=== PATIENT | female | born 1970 | race Caucasian/White ===

== ENCOUNTER 2024-11-06 23:32 | Emergency (ER) | payer OTHER, SELFPAY ==
--- OUTSIDE RECORDS SUMMARY | 2024-11-06 23:34 | XMS_ITS | Clinical Summary ---
Author Organization [facility] Address [place], [place] [address] Care Team Providers Care Patient Financial Services Specialist Name Role Phone Chauncey Brewster MD Primary Care Provider [phone] Miki Marquez MD Unavailable [phone] Allergies Active Allergy Reactions Criticality Noted Date Comments Penicillins Rash 03/21/2007 Medications biotin 1,000 mcg chew Chew 1 Tablet by mouth once daily. 0 6 Active calcium carbonate-vitamin D3 600mg (1,000mg) -1,000 unit cap Take 1 Tablet by mouth once daily. 0 7 Active ergocalciferol (VITAMIN D2; DRISDOL) 50,000 unit capsuleIndications: Vitamin D deficiency Take 1 Capsule (50,000 units) by mouth once weekly. 13 Capsule 3 4 Active levothyroxine (SYNTHROID) 137 mcg tabletIndications:P ostsurgical hypothyroidism Take 1 Tablet (137 mcg) by mouth before breakfast. 90 Tablet 3 4 Active Active Problems Problem Noted Date Diagnosed Date Postablative hypothyroidism 11/18/2015 Overview (03/11/2023): The following is from Dr. Marquez in 03/2022: Thyroid condition is well controlled. Recurrence risk is very low. I think it is reasonable to keep her TSH very mildly suppressed. The preferable range would be 0.3-1.5. I would not adjust her dose of levothyroxine unless her TSH was 0.1 or below. 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 3 foci of follicular-variant, and 1 foci of classic PTC. + surgical margins, + extrathyroidal extension 1/3 LN + on right 108 mCi 07/25/11, thyrogen-protocol Recurrence 2014; left neck dissection 04/25/15 with 2/5 level II; 0/8 level III; 1/8 level IV. 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 Immunizations Name Administration Dates Next Due Hepatitis B (Adult) 10/30/2013,07/03/2013 Influenza A (H1N1), Inactivated 01/26/2010 Influenza, IIV3 (Age 6-35 mos) 07/26/2010 Influenza, IIV3 (Age >=3 years) 10/30/2013 Influenza, IIV4 09/20/2023,12/04/2021,08/29/2018 ,09/30/2015 Tdap 05/09/2011 Family History Medical History Relation Name Comments Cancer-breast No Family History Social History Tobacco Use Types Packs/Day Years Used Date Smoking Tobacco: Never Passive Smoke Exposure: Never Smokeless Tobacco: Never Tobacco Cessation:Counseling Given: Not Answered Alcohol Use Standard Drinks/Week Comments No 0 (1 standard drink = 0.6 oz pur e alcohol) PHQ-2 Answer Date Recorded PHQ-2 Score 3 12/22/2018 Social Connections Answer Date Recorded Do you often feel lonely or isolated from those around you? 4 09/20/2023 Financial Resource Strain Answer Date R ecorded Difficulty of Paying Living Expenses 1 09/20/2023 Difficulty of Paying Living Expenses 2 09/20/2023 Food Insecurity Answer Date Recorded Do you worry your food will run out before you are able to buy more? 1 09/20/2023 Transportation Needs Answer Date Record ed Does lack of transportation keep you from medica l appointments? 1 09/20/2023 Does lack of transportation keep you from work, meetings or getting things that you need? 1 09/20/2023 Housing Stability Answer Date Recorded What is your housing situation today? 1 09/20/2023 Comments No Sex and Gender Information Value Date Recorded Sex Assigned at Not on file Legal Sex Female 7:22 AM [employer] Gender Identity Not on file Sexual Orientation Not on file Obstetrics History Last Filed Vital Signs Vital Sign Reading Time Taken Comments Blood Pressure 150/86 01/03/2024 1:11 PM CDT Pulse 84 01/03/2024 1:11 PM CDT Temperature 37 C (98.6 F) 09/20/2023 1:40 PM [facility] Respiratory Rate 16 12/05/2018 11:4 6 AM [facility] Oxygen Saturation 95% 09/20/2023 1:40 PM [facility] Inhaled Oxygen Concentration - - Weight 100.7 kg (222 lb 1.6 oz) 01/03/2024 1:11 PM CDT Height 165.7 cm (5' 5.25) 07/24/2019 1 1:02 AM CDT Body Mass Index 36.68 07/24/2019 11:02 AM CDT Plan of Treatment Health Maintenance Due Date Last Done Comments HIV for age 15-65 1987 Hepatitis C screening for age 18-79 1990 Depression screening for age 12+ 06/04/2019 06/04/2018, 05/14/2018, 03/16/2016 BMI (ht and wt on same day) for age 18+ 07/24/2020 07/24/2019, 07/13/2019, 06/04/2018, Additional history exists Tetanus booster 05/09/2021 05/09/2011 Pap test for age 21-65 06/04/2021 8, 07/22/2015, 10/10/2010 Pneumococcal series for age 50+ (1 of 1 - PCV) 2022 Zoster (shingles) series for age 50+ (1 of 2) 2022 COVID-19 vaccine series (1 - season) 2024 Influenza for age 50-64 06/21/2024 09/20/20 23, 12/04/2021, 08/29/2018, Additional history exists Mammogram for age 45-75 12/09/2024 12/09/19 24, 12/08/2021, 08/28/2018, Additional history exists Lipids for age 45-75 03/26/2027 03/26/2022, 11/24/2018, 08/22/2018, Additional history exists Colonoscopy through age 75 02/17/203202/16, 02/16/2022, 02/16/2022 Tdap Completed 05/09/2011 Pneumococcal series for age 6-49 Aged Out No longer eligible based on patient's age to complete this topic Procedures Procedure Name Priority Date/Time Associated Diagnosis Comments XR MAMMO REINIER BILAT SCREEN Routine 12/09/2023 4:30 PM [facility] Breast cancer screening by mammogram LIPID PANEL W REFLEX MEASURED LDL Add On 03/26/2022 4:17 PM CDT Dyslipidemia COLONOSCOPY SCREENING Routine 02/16/2022 10:45 AM CDT Screening for colon cancer SPECIAL MACHINE STITCHER THIN PREP PAP SCREEN IMAGED Routine 06/04/2018 12:00 PM CDT Pap smear for cervical cancer screening from Last 3 Months or Most Recently Relevant to Health Maintenance Results * XR MAMMO REINIER BILAT SCREEN [[id number]] (12/09/2023 4:30 PM [facility]) Anatomical Region Laterality Modality BREASTS, Breast Left, Breast Right Bilateral Mammography Impressions 12/11/2023 7:07 AM [facility] There is no radiographic evidence for malignancy. Recommend annual mammograms. MAMMOGRAM ASSESSMENT: ACR 1 Negative PATIENTS: You will also receive a letter with your examination results in an easy to read format. If you have questions about your results, please contact your referring provider. Narrative 12/11/2023 7:07 AM [facility] For Patients: As a result of the Century Cures Act, medical imaging exams and procedure reports are released immediately into your electronic medical record. You may view this report before your referring provider. If you have questions, please contact your health care provider. XR MAMMO REINIER BILAT SCREEN [[id number]] CLINICAL HISTORY: This is an asymptomatic 53 y.o. patient. INDICATION FOR EXAM: Mammogram Screening. TECHNIQUE: CC & MLO views were obtained. This study was evaluated with the assistance of Computer-Aided Detection. Breast Tomosynthesis was used in interpretation. COMPARISON FILM: Yes 12/08/21 [facility] 08/22/18 [facility] FINDINGS: The breasts are heterogeneously dense, which may obscure small masses. There are no dominant masses, suspicious micro calcifications or areas of architectural distortion. Chauncey Brewster MD MAMMO Final Resu lt * (ABNORMAL) LIPID PANEL W REFLEX MEASURED LDL (03/26/2022 4:17 PM CDT) CHOLESTEROL,TOTAL 206(H) 100 - 199 mg/dL 03/30/2022 4:22 PM CDT [facility] TRIGLYCERIDES 253(H) <150 mg/dL 03/30/2022 4:22 PM CDT [facility] HDL CHOLESTEROL 39(L) >40 mg/dL 4:22 PM CDT [facility] NON-HDL CHOLESTEROL 167(H) <145 mg/dl 03/30/2022 4:22 PM CDT [facility] CHOL/HDL RATIO 5.28(H) <4.50 03/30/2022 4:22 PM CDT [facility] LDL CHOLESTEROL 116 <=130 mg/dL 03/30/2022 4:22 PM CDT [facility] VLDL CHOLESTEROL 51(H) <=30 mg/dL 03/30/2022 4:22 PM CDT [facility] PROVIDER ORDERED STATUS RANDOM 03/30/2022 4:22 PM CDT [facility] Blood BLOOD SPECIMEN / Unknown Venipuncture / Unknown 03/26/2022 4:17 PM CDT 03/26/2022 4:17 PM CDT Miki Marquez MD CHEMISTRY Final Re sult [facility] [address] [place] [address], [place] * COLONOSCOPY (02/16/2022 11:03 AM CDT) 02/16/2022 11:0 3 AM CDT Narrative Transcriptions Lior Galeana MD - 02/16/2022 11:43 AM CDT Patient Name: Delfina Miles Procedure Date: 02/16/2022 Gender: Female Date of : 1970 Admit Type: Outpatient Procedure: Colonoscopy Proceduralist: Lior Galeana MD , Paulina Saavedra (Nurse) Referring MD: Chauncey Brewster Indications/Pre-Op Diagnosis: Screening for colorectal malignant neoplasm, This is the patient's first colonoscopy Medications: Fentanyl 100 micrograms IV, Midazolam 4 mgIV, The level of sedation administered wasmoderate Procedure Description: The patient had risks, benefits and alternatives explained to andgave informed consent. The patient had a stable cardiopulmonary status and judged an adequate candidate for conscious sedation. The colonoscope was passed through the anus and advanced to thececum, identified by appendiceal orifice and ileocecal valve. Thecolonoscopy was performed without difficulty. The patient tolerated the procedure well. The quality of the bowel preparation was good. The ileocecal valve, appendiceal orifice, and rectum were photographed. Complications: No immediate complications. Estimated Blood Loss & Specimen: Estimated blood loss: none. Specimen collected - None Findings: The perianal and digital rectal examinations were normal. The entire examined colon appeared normal on direct and retroflexion views. Impressions/Post-Op Diagnosis: - The entire examined colon is normal on direct and retroflexionviews. - No specimens collected. Recommendation: - Patient has a contact number available for emergencies. The signsand symptoms of potential delayed complications were discussed with the patient. Return to normal activities tomorrow. Written discharge instructions were provided to the patient. - Resume previous diet. - Continue present medications. - Repeat colonoscopy in 10 years for screening purposes. Moderate Sedation: Moderate (conscious) sedation was administered by the endoscopy nurse and supervised by the endoscopist. The following parameters were monitored: oxygen saturation, heart rate, respiratory rate, blood pressure, adequacy of pulmonary ventilation and reponse to care. Please refer to the patient's medical record flowsheets and nursing notes for moderate sedation details. Total physician intraservice time was 15 minutes. Lior Galeana MD 02/16/2022 11:43:28 AM This report has been signed electronically. Note Initiated On: 02/16/2022 11:03 AM Procedure Code(s): --- Professional --- 96649, Colonoscopy, flexible; diagnostic, including collection of specimen(s) bybrushing or washing, when performed (separateprocedure) Diagnosis Code(s): --- Professional --- Z12.11, Encounter for screening formalignant neoplasm of colon CPT copyright 2020 [employer]. All rights reserved. The codes documented in this report are preliminary and upon service unit operator reviewmay be revised to meet current compliance requirements. Scope In: 11:17:13 AM Scope Withdrawal Time 0 hours 6 minutes 49 seconds Scope Out: 11:30:44 AM us Lior Galeana MD PROCEDURE ORD Final Res ult * SPECIAL MACHINE STITCHER THIN PREP PAP SCREEN IMAGED (06/04/2018 12:00 PM CDT) Case Report Gynecologic Cytology Report Case: [id number] Authorizing Provider: Chauncey Brewster MD Collected: 06/04/2018 1200 Ordering Location: [facility] Received: 06/04/2018 1220 Clinic First Screen: Mark Borrero Rescreen: Cari Enciso Specimen: SPECIAL MACHINE STITCHER ThinPrep Vial Screening, Cervical 06/17/2018 10:21 AM CDT [facility] INTERPRETATION/ RESULT NEGATIVE FOR INTRAEPITHELIAL LESION OR MALIGNANCY (NIL) (none) 06/17/2018 10:21 AM CDT [facility] IMEN ADEQUACY Satisfactory for evaluation Endocervical component present 06/17/2018 10:21 AM CDT [facility] HPV REQUEST HPV if ASCUS 06/17/2018 10:21 AM CDT [facility] Date of LMP 06/04/2016 06/17/2018 10:21 AM CDT [facility] Last Pap Date 07/22/15 06/17/2018 10:21 AM CDT [facility] Last Pap Result NIL 8 10:21 AM CDT [facility] Abnormal Pap or [place] Bx in last 5 years No 06/17/2018 10:21 AM CDT [facility] Menstrual Status Postmenopausal 06/17/2018 10:21 AM CDT [facility] [place] Bx Done Today No 06/17/2018 10:21 AM CDT [facility] Additional Information None given 06/17/2018 10:21 AM CDT [facility] Automated Review Successful 06/17/2018 10:21 AM CDT [facility] Comment:Specimen processed s uccessfully by automated last putter away device, ThinPrep Imaging System, [employer] Note The pap test is a screening technique, not a diagnostic procedure. It is used primarily to screen for squamous cancers and precursor lesions. Published studies have shown that it is subject to both false negative and false positive results. The pap test should not be used as the sole means to diagnose or exclude pre-malignant and malignant lesions. Cytology is screened and interpreted at [facility] - [address] [facility] [address], [place] [address] and [facility] [place] - [address]; [place] [address] and [facility] - [address]; [place] [address] and [facility] [address]; [place] [id number] 06/17/2018 10:21 AM CDT [facility]AL [facility]ORY Other (Cervical) Non-Blood / Unknown 06/04/2018 12:00 PM CDT 06/04/2018 12:20 PM CDT us Chauncey Brewster MD PATHOLOGY/CYTOLOGY Final R esult [facility] [address] [place] [address], [place] from Last 3 Months or Most Recently Relevant to Health Maintenance Advance Directives * Full Code (Latest Code Status on File) Date Activated Date Inactivated Comments 04/21/2015 2:24 AM 04/21/2015 7:03 PM * Full Code Date Activated Date Inactivated Comments 05/18/2011 1:02 PM 05/20/2011 6:20 PM * Full Code Date Activated Date Inactivated Comments 05/18/2011 7:04 AM 05/18/2011 1:02 PM Care Teams Patient Financial Services Specialist Relationship Specialty Start Date End Date Chauncey Brewster MD [address] [place] [address] PCP - General 03/20/07 Miki Marquez MD [address] [place] [address] Endocrinology 11/20/23
[2024-11-06 23:39] VITALS: BP 159/90; PULSE 113; RESP 22; TEMP 36.8; O2SAT 97; BMI 33.3
[2024-11-07 00:21] LABS: Appearance Urine Clear (Clear); Bilirubin Urine Negative (Negative); Blood Urine Negative (Negative); Color Urine Yellow (Yellow); Glucose Urine Negative (Negative); Ketones Urine Negative (Negative); Leukocyte Esterase Urine Trace (Negative); Nitrite Urine Positive (Negative); Protein Urine Negative (Negative); Specific Gravity Urine 1.015 (1.000-1.030); Urobilinogen Urine 0.2 (0.2-1.0); pH Urine 5.5 (5.0-8.5)
[2024-11-07 00:23] LABS: RBC Urine 0-2 (0-2); WBC Urine 0-2 (0-5)
[2024-11-07 00:24] LABS: Bacteria Urine Moderate
--- NOTE | 2024-11-07 00:40 | ED_ITS ---
HPI - Back Pain/Injury General Date Seen: 11/07/24 Chief Complaint: Back Injury/Pain Stated Complaint: Back Pain Time Seen by Provider: 11/06/24 23:53 Source: patient and family Mode of arrival: ambulatory Limitations: no limitations History of Present Illness HPI Narrative: Patient is a delightful Micronesian-speaking 54-year-old female who presents here with family with a history of left-sided back pain, this woke her up from sleep approximately 3 hours ago it does radiate around to the front of her left side of her abdomen, and into her left-sided pelvic area. She describes it as sharp, associated with a couple episodes of vomiting, she is passing gas in the drank normally today denies of fevers chills, denies ever having this before. Pain does not worsen with bending over twisting or turning. And she says she just can not get comfortable. No history of previous kidney stones, previous history of a laparoscopy secondary to endometriosis in the past. Two vaginal deliveries of children. She stopped having her period 3 years ago. No history of dysuria frequency of urination, no cold-like symptoms sore throat Medications include level thyroxine and vitamin-D. Her is interpreting. Work related injury: No Related Data Home Medications ?Medication ?Instructions ?Recorded ?Confirmed ergocalciferol (vitamin D2) 1,250 1,250 mcg PO 11/06/24 mcg (50,000 unit) capsule levothyroxine 137 mcg tablet 137 mcg PO QAM 11/06/24 11/06/24 Previous Rx's ?Medication ?Instructions ?Recorded levofloxacin 250 mg tablet 250 mg PO DAILY 5 days #5 tabs 11/07/24 Allergies Allergy/AdvReac Type Severity Reaction Status Date / Time Penicillins Allergy Verified 11/07/24 02:23 Review of Systems Status of ROS: Reports: 10 or more systems reviewed and unremarkable except as noted in History and below Exam Narrative: Exam Narrative: The on examination she is uncomfortable, nontoxic looking, moving around the room, she has an ice pack over her left flank region. Pupils are equal round reactive to light there is no scleral icterus redness or TMs are normal oropharynx is normal, neck is supple, chest is good air entry bilaterally with no splinting heart sounds no clicks murmurs or gallops her abdomen is soft and obese, some mild tenderness is noted in the left lower quadrant no left upper quadrant, and over her left flank. She has no pain with bending forward, twisting or turning. Bowel sounds are normal. Skin reveals no petechiae rashes. Const: Vital Signs, click to edit/add: Vital Signs - 24 hr 11/06/24 23:39 Temperature 98.2 F Pulse Rate [Pulse Oximeter] 113 H Respiratory Rate 22 Blood Pressure [Ri ght Upper Arm] 159/90 H Pulse Oximetry 97 Oxygen Delivery Me thod Room Air Documenting provider has reviewed patient's vital signs: yes Course Reevaluation(s) Time of Reevaluation #1: 02:03 Reevaluation #1: Pain markedly improved. Time of Reevaluation #2: 02:49 Reevaluation #2: Patient doing well, I reviewed the results of her laboratory test and CT with her, she will need follow-up next week, given she is nitrite positive in the history of leukopenia I did dose her with Levaquin x1 tonight, to cover her for infection, and we will place her on 5 days antibiotics. I went over warning signs with her, that she should re-presented through her who speaks excellent Pashto. He was able to interpret for us Vital Signs Vital signs: Initial Vital Signs Temperature 98.2 F 11/06/24 23:39 Temperature Source Temporal Artery Scan 11/06/24 23:39 Pulse Rate 113 H 11/06/24 23:39 Respiratory Rate 22 11/06/24 23:39 Blood Pressure 159/90 H 11/06/24 23:39 Blood Pressure Mean 113 H 11/06/24 23:39 Blood Pressure Position Sitting 11/06/24 23:39 Pulse Oximetry 97 11/06/24 23:39 Oxygen Delivery Method Room Air 11/06/24 23:39 Vital Signs Temperature 98.2 F 11/06/24 23:39 Pulse Rate 113 H 11/06/24 23:39 Respiratory Rate 22 11/06/24 23:39 Blood Pressure 159/90 H 11/06/24 23:39 Pulse Oximetry 97 11/06/24 23:39 Oxygen Delivery Method Room Air 11/06/24 23:39 Temperature 98.2 F 11/06/24 23:39 Pulse Rate 113 H 11/06/24 23:39 Respiratory Rate 22 11/06/24 23:39 Blood Pressure 159/90 H 11/06/24 23:39 Pulse Oximetry 97 11/06/24 23:39 Oxygen Delivery Method Room Air 11/06/24 23:39 Medications Administered Medications: Generic Name Dose Route Start Last Admin Trade Name Emani PRN Reason Stop Dose Admin Levofloxacin/Dextrose 500 mg in 100 mls @ 100 mls/hr 11/07/24 02:04 11/07/24 02:20 Levofloxacin 500 Mg/100 Ml D5w IVPB 100 mls/hr Q24H TERE Administration Discontinued Medications Generic Name Dose Route Start Last Admin Trade Name Emani PRN Reason Stop Dose Admin Sodium Chloride 1,000 mls @ 1,000 mls/hr 11/07/24 00:15 11/07/24 00:51 0.9 % Sodium Chloride 1000 Ml IV 11/07/24 01:14 1,000 mls/hr .Q1H TERE Administration Ketorolac Tromethamine 30 mg 11/07/24 00:11 11/07/24 00:51 Ketorolac 30 Mg/Ml Inj IVP 11/07/24 00:12 30 mg ONCE ONE Administration Ondansetron HCl 4 mg 11/07/24 00:11 11/07/24 00:51 Ondansetron 2 Mg/Ml Inj IVP 11/07/24 00:12 4 mg ONCE ONE Administration MDM - Back Pain/Injury MDM Narrative Medical decision making narrative: During the evaluation of this patient I considered multiple differential diagnosis including life-threatening differentials which are appendicitis, aortic aneurysm, mesenteric ischemia, bowel perforation, ectopic , volvulus and bowel obstruction, other differential diagnosis include but are not limited to inflammatory bowel disease, cholecystitis, pancreatitis, hepatitis, gastritis, GERD, diverticulitis, peptic ulcer disease, pyelonephritis/UTI, renal colic/stone, pelvic inflammatory disease, cervicitis, endometritis, intrauterine , dysfunctional uterine bleeding, ovarian cyst/torsion, spontaneous as well as other etiologies Life-threatening differential diagnosis considered include: Cauda equina an epidural abscess, other differential diagnosis considered includes sprain, contusion, nerve root entrapment, radiculopathy, muscle spasm, urolithiasis, lumbar fracture, pyelonephritis, appendicitis, biliary colic, as well as other etiologies. The patient denies saddle anesthesia bowel or bladder incontinence or lower extremity weakness, recent weight loss, or history of malignancy. Medical Records Attestation: I reviewed the patient's medical records. Lab Data Attestation: I reviewed the patient's lab results. Lab results narrative: Leukopenia is noted. Positive nitrites, Labs: Lab Results 11/06/24 11/07/24 Range/Units 00:16 01:11 WBC 1.21 L* (4.50-11.00) K/uL RBC 4.55 (4.00-5.20) m/uL Hgb 11.6 L (12.0-16.0) gm/dL Hct 37.1 (33.0-51.0) % MCV 82 (80-100) fL MCH 26 (26-34) pg MCHC 31 L (32-36) gm/dL RDW Coeff of Aileen 14.8 (11.5-15.5) % Plt Count 233 (140-440) K/uL Neut % (Auto) 67.8 (42.0-72.0) % Lymph % (Auto) 28.9 (20-44) % [place] % (Auto) 0.8 (0.0-11.0) % Eos % (Auto) 0.0 (0.0-7.0) % Baso % (Auto) 0.0 (0.0-3.0) % Neut # (Auto) 0.80 L (1.7-7.0) K/uL Lymph # (Auto) 0.30 L (0.90-2.90) K/uL [place] # (Auto) 0.00 (0.00-0.90) K/UL Eos # (Auto) 0.00 (0.00-0.50) K/uL Baso # (Auto) 0.00 (0.00-0.30) K/uL Abs Immat Gran (auto) 0.00 (0.00-0.30) K/uL Imm/Tot Granulo (auto) 2.5 % Diff Slide Review Acceptable Review (Acceptable) Sodium 144 (135-149) mmol/L Potassium 3.2 L (3.6-5.1) mmol/L Chloride 110 (96-114) mmol/L Carbon Dioxide 22 (20-32) mmol/L Anion Gap 12 (7-15) mEq/L BUN 13 (7-30) mg/dL Creatinine 1.0 (0.5-1.5) mg/dL Estimated Creat Clear 59.22 Estimated GFR 68 ml/min Glucose 106 (60-115) mg/dL Calcium 8.7 (8.4-10.6) mg/dL Total Bilirubin 0.5 (0.1-1.5) mg/dL Direct Bilirubin 0.2 (0.0-0.5) mg/dL AST 39 H (12-35) U/L ALT 30 (4-35) U/L Alkaline Phosphatase 70 (40-150) U/L C-Reactive Protein 0.7 (0.5-1.0) mg/dL Total Protein 6.9 (6.0-8.3) g/dL Albumin 4.1 (3.3-5.0) g/dL Lipase 153 (23-300) U/L Urine Color Yellow (Yellow) Urine Appearance Clear (Clear) Urine pH 5.5 (5.0-8.5) Ur Specific [place] 1.015 (1.000-1.030) Urine Protein Negative (Negative) Urine Glucose (UA) Negative (Negative) Urine Ketones Negative (Negative) Urine Blood Negative (Negative) Urine Nitrite Positive A (Negative) Urine Bilirubin Negative (Negative) Urine Urobilinogen 0.2 (0.2-1.0) Ur Leukocyte Esterase Trace A (Negative) Urine RBC 0-2 (0-2) Urine WBC 0-2 (0-5) Ur Squamous Epith Cells None (None-Few) Urine Bacteria Moderate A (None) Imaging Data CT scan - abdomen: Attestation: I have reviewed the pertinent imaging results. My impression: Left-sided [id number] hydronephrosis with left-sided uretovesical stone of 2-3 mm noted. Awaiting radiology read Radiologist's impression: Patient: Delfina Miles MR#: [id number] : 1970 Acct:[id number] Loc: ED Service Date: 11/07/[address]: Ordering Physician: Miah Sarmiento M.D. Date of Service: 11/07/24 Procedure(s): CT abdomen pelvis w con Accession Number(s): [id number] cc: Arpita Peña M.D.; Miah Sarmiento M.D.~ For Patients: As a result of the Cures Act, medical imaging exams and procedure reports are released immediately into your electronic medical record. You may view this report before your referring provider. If you have questions, please contact your health care provider. INDICATION: Abdominal pain. TECHNIQUE: CT abdomen and pelvis acquired with 98 cc Isovue 370 IV contrast. COMPARISON: None. FINDINGS: Lower chest: Right lower lobe calcified granuloma. Liver: Hepatic steatosis. Gallbladder and bile ducts: Unremarkable. No stones or inflammation. No biliary ductal dilatation. Spleen: Unremarkable. Normal in size. No masses. Adrenal glands: Unremarkable. No nodules. Pancreas: Unremarkable. No mass or inflammation. Kidneys: 3 mm calculus at the left ureterovesical junction. Mild left hydroureteronephrosis. Delayed left nephrogram. Punctate nonobstructive left renal calculus. GI tract: Unremarkable. Normal in caliber. No evidence of obstruction. Normal appendix. Lymph nodes: No lymphadenopathy. Vasculature: Unremarkable. Omentum/Peritoneum/Abdominal Wall: Unremarkable. No free air or significant free fluid. Pelvis: Unremarkable. Bones: Degenerative changes. IMPRESSION: 1. 3 mm left ureterovesical junction calculus with mild upstream hydroureteronephrosis. 2. Punctate left nonobstructive nephrolithiasis. 3. Hepatic steatosis. Please note that all CT scans at this facility use dose modulation, iterative reconstruction, and/or weight-based dosing when appropriate to reduce radiation dose to as low as reasonably achievable. Dictated by Tulio Nash MD @ 11/07/2024 2:06:45 AM (Electronically Signed) Discharge Plan Discharge Clinical Impression: Renal colic, Leukopenia, Urinary tract infection, Acute hypokalemia Patient Disposition: Home w/ Parent or Adult Condition: Improved Instructions: Urinary Tract Infection in Women (DC), Renal Colic (ED), Potassium Content of Foods List (ED), Hypokalemia (ED) Additional Instructions: Home rest medications as directed, ibuprofen OTC 600 mg by mouth 3 times a day for the 1st 2 days. Then as needed. Prescription given for a stronger medication only use this as needed, as it is a narcotic and can promote addiction if given for a longer period of time. I also gave you a prescription for some nausea medicine that you may use. Along with an antibiotic. Recommend follow-up next week with your regular physician, to recheck your blood, and also to see how your doing with the urinary tract infection and a kidney stone. The kidney stones typically past without no problem at all in fact you are at the last little bit. Return here if increasing abdominal pain fevers chills nausea vomiting or pain and controlled with current regime a medication. Your potassium was also slightly low, nothing to be terribly worried about although I would suggest eating potassium rich foods, bananas and kiwis Zofran 4 mg ODT times 10 tablets, Percocet 5/325 times 10 tablets, Rx sent to the pharmacy for the antibiotic. Activity Level: Light activity Discharge Diet: Regular Prescriptions: New levofloxacin 250 mg tablet 250 mg PO DAILY 5 Days Qty: 5 0RF No Action levothyroxine 137 mcg tablet 137 mcg PO QAM ergocalciferol (vitamin D2) 1,250 mcg (50,000 unit) capsule 1,250 mcg PO Follow Up/Referrals: Arpita Peña MD [Primary Care Provider] - Chauncey Brewster MD [Staff Physician] - Stand Alone Forms: [employer] [facility] Info Instructions
[2024-11-07] MEDS: 0.9 % SODIUM CHLORIDE 1000 ml 1,000 ML IV (00:51)
[2024-11-07] MEDS: ONDANSETRON 2 MG/ML inj 4 MG IVP (00:51)
[2024-11-07] MEDS: KETOROLAC 30 MG/ML inj IVP (00:51)
[2024-11-07 01:14] LABS: Hematocrit 37.1 % (33.0-51.0); Hemoglobin* 11.6 gm/dL (12.0-16.0); Immature Granulocytes Pct Auto 2.5 %; Lymphocytes Percent Auto 28.9 % (20-44); Mean Corpuscular HGB Conc 31 gm/dL (32-36); Mean Corpuscular Hemoglobin 26 pg (26-34); Mean Corpuscular Volume 82 fL (80-100); Monocytes Percent Auto 0.8 % (0.0-11.0); Neutrophils Percent Auto 67.8 % (42.0-72.0); Platelet Count* 233 K/uL (140-440); RDW Coefficient of Variation % 14.8 % (11.5-15.5); Red Blood Count 4.55 m/uL (4.00-5.20)
--- NOTE | 2024-11-07 01:18 | CRLHL7_ITS ---
For Patients: As a result of the Century Cures Act, medical imaging exams and procedure reports are released immediately into your electronic medical record. You may view this report before your referring provider. If you have questions, please contact your health care provider. INDICATION: Abdominal pain. TECHNIQUE: CT abdomen and pelvis acquired with 98 cc Isovue 370 IV contrast. COMPARISON: None. FINDINGS: Lower chest: Right lower lobe calcified granuloma. Liver: Hepatic steatosis. Gallbladder and bile ducts: Unremarkable. No stones or inflammation. No biliary ductal dilatation. Spleen: Unremarkable. Normal in size. No masses. Adrenal glands: Unremarkable. No nodules. Pancreas: Unremarkable. No mass or inflammation. Kidneys: 3 mm calculus at the left ureterovesical junction. Mild left hydroureteronephrosis. Delayed left nephrogram. Punctate nonobstructive left renal calculus. GI tract: Unremarkable. Normal in caliber. No evidence of obstruction. Normal appendix. Lymph nodes: No lymphadenopathy. Vasculature: Unremarkable. Omentum/Peritoneum/Abdominal Wall: Unremarkable. No free air or significant free fluid. Pelvis: Unremarkable. Bones: Degenerative changes. IMPRESSION: 1. 3 mm left ureterovesical junction calculus with mild upstream hydroureteronephrosis. 2. Punctate left nonobstructive nephrolithiasis. 3. Hepatic steatosis. Please note that all CT scans at this facility use dose modulation, iterative reconstruction, and/or weight-based dosing when appropriate to reduce radiation dose to as low as reasonably achievable. Dictated by Tulio Nash MD @ 11/07/2024 2:06:45 AM (Electronically Signed)
--- OUTSIDE RECORDS SUMMARY | 2024-11-07 01:21 | XMS_ITS | Clinical Summary ---
Author Organization [employer] [facility] [employer] [employer] Address [place], [place] [address] Care Team Providers Care Frame Wirer Name Role Phone Chauncey Brewster MD Primary Care Provider [phone] Miki Marquez MD Unavailable [phone] Allergies Active Allergy Reactions Criticality Noted Date [...] on file Legal Sex Female 7:22 AM OUTSIDE INSTALLATION MACHINIST Gender Identity Not on file Sexual Orientation Not on file Obstetrics History Last Filed Vital Signs Vital Sign Reading Time Taken Comments Blood Pressure 150/86 01/03/2024 1:11 PM CDT Pulse 84 01/03/2024 1:11 PM CDT Temperature 37 C (98.6 F) 09/20/2023 1:40 PM OUTSIDE INSTALLATION MACHINIST Respiratory Rate 16 12/05/2018 11:4 6 AM OUTSIDE INSTALLATION MACHINIST Oxygen Saturation 95% 09/20/2023 1:40 PM OUTSIDE INSTALLATION MACHINIST Inhaled Oxygen Concentration - - Weight 100.7 [...] REINIER BILAT SCREEN Routine 12/09/2023 4:30 PM OUTSIDE INSTALLATION MACHINIST Breast cancer screening by mammogram LIPID PANEL W REFLEX MEASURED LDL Add On 03/26/2022 4:17 PM CDT Dyslipidemia COLONOSCOPY SCREENING Routine 02/16/2022 10:45 AM CDT Screening for colon cancer ENVIRONMENTAL SERVICES LEAD THIN PREP PAP SCREEN IMAGED Routine 06/04/2018 12:00 PM CDT Pap smear for cervical cancer screening from Last 3 Months or Most Recently Relevant to Health Maintenance Results * XR MAMMO REINIER BILAT SCREEN [[id number]] (12/09/2023 4:30 PM OUTSIDE INSTALLATION MACHINIST) Anatomical Region Laterality Modality BREASTS, Breast Left, Breast Right Bilateral Mammography Impressions 12/11/2023 7:07 AM OUTSIDE INSTALLATION MACHINIST There is no radiographic evidence for malignancy. Recommend annual mammograms. MAMMOGRAM ASSESSMENT: ACR 1 Negative PATIENTS: You will also receive a letter with your examination results in an easy to read format. If you have questions about your results, please contact your referring provider. Narrative 12/11/2023 7:07 AM OUTSIDE INSTALLATION MACHINIST For Patients: As a result of the Century Cures Act, medical imaging exams and procedure reports are released immediately into your electronic medical record. You may view this report before your referring provider. If you have questions, please contact your health care provider. XR MAMMO RENIIER BILAT SCREEN [[id number]] CLINICAL HISTORY: This is an asymptomatic 53 y.o. patient. INDICATION FOR EXAM: Mammogram Screening. TECHNIQUE: CC & MLO views were obtained. This study was evaluated with the assistance of Computer-Aided Detection. Breast Tomosynthesis was used in interpretation. COMPARISON FILM: Yes 12/08/[address] [facility] 08/22/[address] [facility] FINDINGS: The breasts are heterogeneously dense, which may obscure small masses. There are no dominant masses, suspicious micro calcifications or areas of architectural distortion. Chauncey Brewster MD MAMMO Final Resu lt * (ABNORMAL) LIPID PANEL W REFLEX MEASURED LDL (03/26/2022 4:17 PM CDT) CHOLESTEROL,TOTAL 206(H) 100 - 199 mg/dL 03/30/2022 4:22 PM CDT [facility] TRIGLYCERIDES 253(H) <150 mg/dL 03/30/2022 4:22 PM CDT [facility] HDL CHOLESTEROL 39(L) >40 mg/dL 4:22 PM CDT [facility] NON-HDL CHOLESTEROL 167(H) <145 mg/dl 03/30/2022 4:22 PM CDT [facility] CHOL/HDL RATIO 5.28(H) <4.50 03/30/2022 4:22 PM CDT [facility] LDL CHOLESTEROL 116 <=130 mg/dL 03/30/2022 4:22 PM CDT [facility] VLDL CHOLESTEROL 51(H) <=30 mg/dL 03/30/2022 4:22 PM CDT [facility] PROVIDER ORDERED STATUS RANDOM 03/30/2022 4:22 PM CDT [facility] Blood BLOOD SPECIMEN / Unknown Venipuncture / Unknown 03/26/2022 4:17 PM CDT 03/26/2022 4:17 PM CDT Miki Marquez MD CHEMISTRY Final Re sult [facility] [address] [place] [address], [place] * COLONOSCOPY (02/16/2022 11:03 AM CDT) [...] 11:03 AM Procedure Code(s): --- Professional --- 89545, Colonoscopy, flexible; diagnostic, including collection of specimen(s) bybrushing or washing, when performed (separateprocedure) Diagnosis Code(s): --- Professional --- Z12.11, Encounter for screening formalignant neoplasm of colon CPT copyright 2020 [employer]. All rights reserved. The codes documented in this report are preliminary and upon agricultural commodities inspector reviewmay be revised to meet current compliance requirements. Scope In: 11:17:13 AM Scope Withdrawal Time 0 hours 6 minutes 49 seconds Scope Out: 11:30:44 AM us Lior Galeana MD PROCEDURE ORD Final Res ult * ENVIRONMENTAL SERVICES LEAD THIN PREP PAP SCREEN IMAGED (06/04/2018 12:00 PM CDT) Case Report Gynecologic Cytology Report Case: [id number] Authorizing Provider: Chauncey Brewster MD Collected: 06/04/2018 1200 Ordering Location: [facility] Received: 06/04/2018 1220 Clinic First Screen: Mark Borrero Rescreen: Cari Enciso Specimen: ENVIRONMENTAL SERVICES LEAD ThinPrep Vial Screening, Cervical 06/17/2018 10:21 AM CDT [facility] INTERPRETATION/ RESULT NEGATIVE FOR INTRAEPITHELIAL LESION OR MALIGNANCY (NIL) (none) 06/17/2018 10:21 AM CDT [facility] [facility] IMEN ADEQUACY Satisfactory for evaluation Endocervical component present 06/17/2018 10:21 AM CDT [facility] [employer] [facility] HPV REQUEST HPV if ASCUS 06/17/2018 10:21 AM CDT [facility] [employer] [facility] Date of LMP 06/04/2016 06/17/2018 10:21 AM CDT [facility] [employer] [facility] Last Pap Date 07/22/15 06/17/2018 10:21 AM CDT [facility] [employer] [facility] Last Pap Result NIL 8 10:21 AM CDT [facility] [employer] [facility] Abnormal Pap or Nucla Bx in last 5 years No 06/17/2018 10:21 AM CDT [facility] [employer] [facility] Menstrual Status Postmenopausal 06/17/2018 10:21 AM CDT [facility] [employer] [facility] Nucla Bx Done Today No 06/17/2018 10:21 AM CDT [facility] [employer] [facility] Additional Information None given 06/17/2018 10:21 AM CDT [facility] [employer] [facility] Automated Review Successful 06/17/2018 10:21 AM CDT [facility] [employer] [facility] Comment:Specimen processed s uccessfully by automated steel pickler device, ThinPrep Imaging System, [employer] Note The pap test is a [...] lesions. Cytology is screened and interpreted at [facility], Central Laboratory - [address] [facility] [address], [place] [address] and [facility] - [address]; [place] [address] and [facility] - [address]; [place] [address] and [facility] [address]; [place] [id number] 06/17/2018 10:21 AM CDT [facility] [employer] [facility] ENTRAL LABORATORY Other (Cervical) Non-Blood / Unknown 06/04/2018 12:00 PM CDT 06/04/2018 12:20 PM CDT us Chauncey Brewster MD PATHOLOGY/CYTOLOGY Final R esult [facility] [address] [place] [address], [place] from Last 3 Months or Most Recently Relevant to Health Maintenance Advance Directives * Full Code (Latest Code Status on File) Date Activated Date Inactivated Comments 04/21/2015 2:24 AM 04/21/2015 7:03 PM * Full Code Date Activated Date Inactivated Comments 05/18/2011 1:02 PM 05/20/2011 6:20 PM * Full Code Date Activated Date Inactivated Comments 05/18/2011 7:04 AM 05/18/2011 1:02 PM Care Teams Frame Wirer Relationship Specialty Start Date End Date Chauncey Brewster MD [address] [place] [address] PCP - General 03/20/07 Miki Marquez MD [address] [place] [address] Endocrinology 11/20/23
[2024-11-07 01:39] LABS: Albumin* 4.1 g/dL (3.3-5.0)
[2024-11-07 01:41] LABS: Total Protein* 6.9 g/dL (6.0-8.3)
[2024-11-07 01:42] LABS: Alanine Aminotransferase* 30 U/L (4-35); Alkaline Phosphatase* 70 U/L (40-150); Aspartate Amino Transferase* 39 U/L (12-35); Bilirubin Direct* 0.2 mg/dL (0.0-0.5); Bilirubin Total* 0.5 mg/dL (0.1-1.5); Lipase* 153 U/L (23-300)
[2024-11-07 01:47] LABS: Slide Review Acceptable Review (Acceptable); Slide Review Reflex Yes; White Blood Count* 1.21 K/uL (4.50-11.00)
[2024-11-07 02:01] LABS: Chloride* 110 mmol/L (96-114); Potassium* 3.2 mmol/L (3.6-5.1); Sodium* 144 mmol/L (135-149)
[2024-11-07 02:04] LABS: Anion Gap 12 mEq/L (7-15); Carbon Dioxide* 22 mmol/L (20-32); Est. Creatinine Clearance* 59.22; Estimated Glomerular Filt Rate 68 ml/min
[2024-11-07 02:05] LABS: Blood Urea Nitrogen* 13 mg/dL (7-30); Calcium* 8.7 mg/dL (8.4-10.6); Glucose* 106 mg/dL (60-115)
[2024-11-07 02:07] LABS: C Reactive Protein* 0.7 mg/dL (0.5-1.0)
[2024-11-07] MEDS: levoFLOXacin 500 MG/100 ML D5W 500 MG/100 ML PIGGYBACK 100 MG IVPB (02:20)
== END 2024-11-07 03:40 | disposition home or self-care (01) ==
PROVIDERS: Emergency Provider Family Medicine; PCP Obstetrics & Gynecology
DX: N23 Unspecified renal colic (principal); D72.819 Decreased white blood cell count, unspecified; N39.0 Urinary tract infection, site not specified; E87.6 Hypokalemia
CPT/HCPCS: 36415; 74177; 80048; 80076; 81001; 81025; 83690; 85025; 86140; 87086; 96365; 96375; 99284; 99285; J1885; J1956; J2405; J7030; Q9967